=== PATIENT | male | born 1985 | race Two or more races ===

== ENCOUNTER 2019-06-02 15:34 | Emergency (ER) | payer SELFPAY ==
[~2019-06-02] VITALS: Ht 172.7 cm; Wt 82.2 kg
[2019-06-02 15:36] VITALS: BP 114/77
== END 2019-06-02 16:14 | disposition home or self-care (01) ==
LOC: ED 16:10
DX: T23.171A Burn of first degree of right wrist, initial encounter (principal); T31.0 Burns involving less than 10% of body surface; Z87.891 Personal history of nicotine dependence; X11.8XXA Contact with other hot tap-water, initial encounter; Y93.89 Activity, other specified; Y92.89 Other specified places as the place of occurrence of the external cause; Y99.8 Other external cause status
CPT/HCPCS: 16020; 99284

== ENCOUNTER 2021-05-13 20:00 | Emergency (ER) | payer SELFPAY ==
[~2021-05-13] VITALS: Ht 172.7 cm; Wt 84.2 kg
[2021-05-13] MEDS ORDERED: SODIUM CHLORIDE FLUSH 10ML SYR IVF ONE (20:30)
[2021-05-13] MEDS ORDERED: SODIUM CHLORIDE 0.9% 1,000ML IVBOLUS ONE (20:30)
[2021-05-13 21:29] LABS: BASOPHILS % (AUTO) 1 % (0-1); EOSINOPHILS % (AUTO) 1 % (1-7); LYMPHOCYTES % (AUTO) 20 % (22-44); MEAN CORPUSCULAR HEMOGLOBIN 30.8 pg (27.5-34.5); MEAN CORPUSCULAR HGB CONC 34.8 g/dL (33.2-36.2); MEAN PLATELET VOLUME 6.9 fL (7.4-10.4); MONOCYTES % (AUTO) 9 % (2-9); NEUTROPHILS % (AUTO) 70 % (42-75); PLATELET COUNT 198 x10^3/uL (130-400); RED BLOOD COUNT 4.86 x10^6/uL (4.38-5.82); RED CELL DISTRIBUTION WIDTH 14.1 % (9.4-14.8)
[2021-05-13 21:35] LABS: ALBUMIN 3.7 g/dL (3.4-5.0); ANION GAP 6 mmol/L (5-15); CALCIUM 9.6 mg/dL (8.5-10.1); CHLORIDE 107 mmol/L (98-107)
[2021-05-13 21:46] LABS: ALANINE AMINOTRANSFERASE 93 U/L (12-78); ALKALINE PHOSPHATASE 82 U/L (45-117); BILIRUBIN,TOTAL 0.8 mg/dL (0.2-1.0); CREATININE 0.91 mg/dL (0.7-1.3); TOTAL PROTEIN 8.3 g/dL (6.4-8.2)
--- NOTE | 2021-05-13 22:55 | NUR ---
TO ROOM FROM LOBBY. NAD.
--- NOTE | 2021-05-13 23:19 | NUR ---
PT C/O OF LRE SWELLING, PAIN, AND DISCOLORTION SINCE 3 DAYS AGO PT STATES HE BELIEVES HE GOT BIT BY SOMTHING IN CA DENIES FEVER/CHILLS, SOB, CP, N/V/D ATTACHED TO MONITORS. HR ELEVATED. NADN. BED IN LOW POSITION , RAILS ENGAGED, CALL LIGHT ON LAP. FRIEND AT BEDSIDE. WCTM
--- NOTE | 2021-05-13 23:27 | NUR ---
PT STATES HE FORGOT TO TELL DOCTOR ABOUT SWOLLEN PAINFUL AREA IN HIS RIGHT SIDE OF GROIN. SPOKE TO ER MD AND MD SAID HE WOULD GO INT THERE AND EXAMINE PT. PT REFUSED IV AND SAID HE DID NOT WANT IT. IV DISCONTINUED. PT STATES HE WANTS TO GO HOME AND START PO ANTIBIOTICS.
[2021-05-14 00:26] VITALS: BP 134/101
== END 2021-05-14 00:34 | disposition home or self-care (01) ==
LOC: ED 20:09
DX: L03.115 Cellulitis of right lower limb (principal); F14.129 Cocaine abuse with intoxication, unspecified; R94.31 Abnormal electrocardiogram [ECG] [EKG]; F15.129 Other stimulant abuse with intoxication, unspecified; F17.200 Nicotine dependence, unspecified, uncomplicated
CPT/HCPCS: 36415; 80053; 84443; 85025; 93005; 99284